=== PATIENT | female | born 1995 | race Caucasian/White ===

== ENCOUNTER 2018-10-21 21:57 | Emergency (ER) | payer BC ==
[~2018-10-21] VITALS: Ht 167.6 cm; Wt 63.5 kg
[2018-10-21] MEDS ORDERED: LORazepam 2 MG/ML, 1ML IM ONE (22:30)
[2018-10-21] MEDS ORDERED: PROMETHAZINE 25 MG/ML, 1ML IM ONE (22:30)
[2018-10-22 00:17] VITALS: BP 113/64
== END 2018-10-22 00:21 | disposition home or self-care (01) ==
LOC: ED 23:17
DX: F41.1 Generalized anxiety disorder (principal); R11.2 Nausea with vomiting, unspecified; Z88.0 Allergy status to penicillin
CPT/HCPCS: 96372; 99284; J2060; J2550; 99285